=== PATIENT | male | born 1965 | race African-American/Black ===

== ENCOUNTER 2018-09-25 13:26 | Emergency (ER) | payer SELFPAY ==
[~2018-09-25] VITALS: Ht 170.2 cm; Wt 109.0 kg
[2018-09-25] MEDS ORDERED: IBUPROFEN 600MG TABLET PO ONE (15:45)
[2018-09-25] MEDS ORDERED: ACETAMINOPHEN 500MG TABLET PO ONE (15:45)
[2018-09-25 18:44] VITALS: BP 155/86
== END 2018-09-25 18:45 | disposition home or self-care (01) ==
LOC: ER 13:26
DX: S62.613A Displaced fracture of proximal phalanx of left middle finger, initial encounter for closed fracture (principal); M79.672 Pain in left foot; I10 Essential (primary) hypertension; F17.200 Nicotine dependence, unspecified, uncomplicated; Z98.890 Other specified postprocedural states; V29.88XA Motorcycle rider (driver) (passenger) injured in other specified transport accidents, initial encounter; Y93.89 Activity, other specified; Y92.89 Other specified places as the place of occurrence of the external cause; Y99.8 Other external cause status
CPT/HCPCS: 29125; 29130; 73130; 73630; 99283